=== PATIENT | female | born 2000 | race Caucasian/White ===

== ENCOUNTER 2021-05-22 17:22 | Emergency (ER) | payer BC, SELFPAY ==
[2021-05-22 17:33] VITALS: BP 141/102; PULSE 119; RESP 18; TEMP 37.2; O2SAT 100
[2021-05-22 17:36] VITALS: BP 141/102; PULSE 119; RESP 18; TEMP 37.2; O2SAT 100
--- NOTE | 2021-05-22 17:58 | ED.URI ---
HPI - URI/Sore Throat General Chief Complaint: Upper Respiratory Infection Stated Complaint: Cough Source: patient Mode of arrival: ambulatory Limitations: no limitations History of Present Illness HPI Narrative: 20-year-old identifies as he/today presented for complaint of headache, body aches, sinus pressure/congestion, ST, cough, fever/chills worsening over the past 2 days. Also endorses sick contacts positive for covid yesterday. Home test positive. Patient is not vaccinated for covid. Has not taken anything for symptoms. MD elicited complaint: cough and nasal congestion Related Data Home Medications Medication Instructions Recorded Confirmed No Home Medications 05/22/21 05/22/21 Allergies Allergy/AdvReac Type Severity Reaction Status Date / Time medroxyprogesterone Allergy Unknown Verified 05/22/21 17:35 [From Depo-Provera] Sulfa (Sulfonamide Allergy Unknown Verified 05/22/21 17:35 Antibiotics) Review of Systems Review of Systems: CONSTITUTIONAL: Endorses malaise, chills, sweats, fever. EYES: Denies visual changes, redness, or discharge. ENT: Reports rhinorrhea, congestion, sinus pain, otalgia and sore throat. CARDIOVASCULAR: Denies chest pain, palpitations, or edema. RESPIRATORY: Reports cough, post nasal drainage. Denies dyspnea. GASTROINTESTINAL: Denies abdominal pain, nausea, vomiting, diarrhea SKIN: Denies rash or itching. MUSCULOSKELETAL: endorses myalgia. NEUROLOGIC: Denies headache. Exam Narrative: GENERAL: Ill-appearing, nontoxic no acute distress. HEAD: Normocephalic EYES: PERRLA, conjunctivae clear ENT: Mucous membranes moist. TM pearly craven with dull light reflex bilaterally; no tragal tenderness. Oropharynx erythematous without lesions, no drooling, no hoarseness, no trismus, uvula midline. NECK: Supple. No lymphadenopathy CHEST: Clear to auscultation, breath sounds equal. No wheezing, rhonchi, rales, or stridor. No respiratory distress, speaks in full sentences. HEART: Regular rate and rhythm. No murmur heard. SKIN: Warm, dry, no rash. NEURO: Alert and oriented x3. PSYCH: Normal mood and affect Course Course Emergency Course: covid positive Patient is aware of diagnosis, understands and agrees to treatment plan. Anticipatory guidance given. Patient agrees to follow-up as directed and is aware of reasons to seek care at the emergency department. Portions of this record may have been created with voice recognition software Level of Care: Express Care Visit Vital Signs Vital signs: Vital Signs Temperature 98.9 F 05/22/21 17:33 Pulse Rate 119 H 05/22/21 17:33 Respiratory Rate 18 05/22/21 17:33 Blood Pressure 141/102 H 05/22/21 17:33 Pulse Oximetry 100 05/22/21 17:33 Temperature 98.9 F 05/22/21 17:36 Pulse Rate 119 H 05/22/21 17:36 Respiratory Rate 18 05/22/21 17:36 Blood Pressure 141/102 H 05/22/21 17:36 Pulse Oximetry 100 05/22/21 17:36 reviewed MDM - URI/Sore Throat Differential Diagnosis Differential diagnosis: Likely upper respiratory infection, viral infection and pharyngitis Lab Data Attestation: I reviewed the patient's lab results. Discharge Plan Discharge Clinical Impression: COVID-19 Patient Disposition: Home, Self-Care Condition: Stable Instructions: Antibiotic Form, COVID-19 (Coronavirus Disease 2019) (ED) Additional Instructions: Your rapid COVID test was positive today. The following recommendations have been made by the CDC and local Health Departments, regarding COVID-19: -Those individuals with mild cases of COVID-19 can generally be discontinued from isolation 5 days AFTER the onset of symptoms AND the resolution of fever for 24hrs (without the use of fever-reducing medications)* Rest, stay hydrated. Tylenol, Flonase/nasal spray, Zyrtec, cough syrup cold/flu medications for symptoms as needed Prescriptions: No Action No Home Medications RF: 0 Follow-up/Referrals: PHYSICIAN,[facility] [employer] [Prim
== END 2021-05-22 18:26 | disposition home or self-care (01) ==
PROVIDERS: Emergency Provider Nurse Practitioner Family
DX: U07.1 COVID-19 (principal)
CPT/HCPCS: 87426; 99213; C9803; G0463